=== PATIENT | female | born 1965 | race Caucasian/White ===

== ENCOUNTER → 2018-03-26 | Outpatient (CLI) | payer OTHER | LOC: M.RAD 15:40 | DX: Z12.31 Encounter for screening mammogram for malignant neoplasm of breast (principal) ==

== ENCOUNTER → 2018-04-05 | Outpatient (CLI) | payer OTHER | LOC: M.ULTRA 08:41 | DX: N63.11 Unspecified lump in the right breast, upper outer quadrant (principal) ==